=== PATIENT | male | born 1990 | race Hispanic/Latino ===

== ENCOUNTER 2019-03-27 17:52 | Emergency (ER) | payer SELFPAY ==
[~2019-03-27] VITALS: Ht 180.3 cm; Wt 88.0 kg
[2019-03-27] MEDS ORDERED: FLEXERIL PO (20:07)
[2019-03-27 20:31] VITALS: BP 149/83
== END 2019-03-27 20:29 | disposition home or self-care (01) | DRG 552 ==
LOC: ED 17:52
DX: M43.6 Torticollis (principal)

== ENCOUNTER 2020-04-16 21:05 | Emergency (ER) | payer SELFPAY ==
[~2020-04-16] VITALS: Ht 180.3 cm; Wt 98.0 kg
[~2020-04-16 21:05] MED LIST: FLEXERIL PO
[2020-04-16 22:19] LABS: HEMATOCRIT 44.5 % (39.0-50.0); HEMOGLOBIN 15.3 g/dl (14.0-18.0); IMMATURE GRANULOCYTES 0.5 % (0.0-5.0); MEAN CELL VOLUME 90.1 fL CALC (80.0-100.0); MEAN CORPUSCULAR HGB CONC 34.4 g/dL CAL (32.0-36.0); NEUT# 4.33 thou/uL (1.82-7.42); RED BLOOD COUNT 4.94 mill/uL (4.70-6.10); RED CELL DISTRI WIDTH 12.8 % (11.5-15.5)
[2020-04-16 22:21] LABS: URINE BILIRUBIN - DIPSTICK NEGATIVE (NEGATIVE); URINE BLOOD DIPSTICK NEGATIVE (NEGATIVE); URINE COLOR YELLOW; URINE GLUCOSE - DIPSTICK NEGATIVE (NEGATIVE); URINE KETONE NEGATIVE (NEGATIVE); URINE LEUK ESTERASE NEGATIVE (NEGATIVE); URINE NITRITE - DIPSTICK NEGATIVE (Negative); URINE PROTEIN - DIPSTICK NEGATIVE (NEG-TRACE)
[2020-04-16 22:36] LABS: PROTHROMBIN TIME 10.3 SECONDS (9.0-12.5)
[2020-04-16 22:40] LABS: ALBUMIN 4.6 g/dL (3.2-5.0); ALKALINE PHOSPHATASE 78 u/l (38-126); AMYLASE 58 u/l (30-110); ANION GAP 11 (6-22 (CALC)); BILIRUBIN, TOTAL 1.3 mg/dL (0.0-1.4); BUN 17 mg/dL (9-20); BUN/CREATININE RATIO 20 (12-20 (CALC)); CARBON DIOXIDE 26 mmol/l (22-30); CHLORIDE 104 mmol/l (95-108); CREATININE 0.8 mg/dL (0.7-1.3); GFR > 60 ML/MIN (>=60 (CALC)); GFR FOR AFR.AMER. > 60 ML/MIN (>=60 (CALC)); LIPASE 129 u/l (23-300); SGOT/AST 208 u/l (17-59); SODIUM 138 mmol/l (137-146)
[2020-04-17] MEDS ORDERED: PREVACID30 M3 PO (00:38)
[2020-04-17 00:50] VITALS: BP 117/74
== END 2020-04-17 00:50 | disposition home or self-care (01) | DRG 866 ==
LOC: ED 21:05
PROVIDERS: Emergency Medicine
DX: B34.9 Viral infection, unspecified (principal); R16.0 Hepatomegaly, not elsewhere classified; K62.5 Hemorrhage of anus and rectum
CPT/HCPCS: Q9967

== ENCOUNTER 2021-08-08 10:42 | Day surgery (SDC) | payer SELFPAY ==
[~2021-08-08] VITALS: Ht 180.3 cm; Wt 95.3 kg
[~2021-08-08 10:42] MED LIST changes: +PREVACID30 M3 PO
[2021-08-08] MEDS ORDERED: PERCOCET 5/321 COMBO PO (13:32)
[2021-08-08 14:08] VITALS: BP 133/92
== END 2021-08-08 14:30 | disposition home or self-care (01) | DRG 349 ==
LOC: ORM 10:42
PROVIDERS: ATTEND Surgery
PROC: 06BY3ZC Excision of Hemorrhoidal Plexus, Percutaneous Approach (ICD-10-PCS; principal; 2021-08-08)
DX: K64.8 Other hemorrhoids (principal)
CPT/HCPCS: C9290; J0131